=== PATIENT | female | born 1980 | race African-American/Black ===

== ENCOUNTER 2016-07-04 14:36 | Inpatient (IN) | payer OTHER ==
[~2016-07-04] VITALS: Ht 157.5 cm; Wt 65.3 kg
[2016-07-04 15:12] LABS: CALCIUM 8.5 mg/dL (8.5-10.1); CARBON DIOXIDE 25.7 mmol/L (21-32); CREATININE SERUM 1.2 mg/dL (0.6-1.0); POTASSIUM SERUM 3.8 mmol/L (3.5-5.1)
[2016-07-04 15:16] LABS: BILIRUBIN TOTAL 0.2 mg/dL (0.20-1.00); TOTAL PROTEIN, SERUM 6.2 g/dL (6.4-8.2)
[2016-07-04 15:20] LABS: BASOPHIL % 0.3 % (0-2); PLATELET COUNT 242 x10^3mcL (130-400); RED CELL DISTRIBUTION WIDTH 13.5 % (11.5-14.5)
[2016-07-04 15:24] LABS: ALBUMIN 3.2 g/dL (3.4-5.0)
[2016-07-04] MEDS ORDERED: CYMBALTA30 M1 PO (16:21)
[2016-07-04] MEDS ORDERED: LORAZEPAM1 MG PO (16:22)
[2016-07-04] MEDS ORDERED: NEU300 PO (16:23)
[2016-07-04 16:24] LABS: AMPHETAMINE QUAL UR NONE DETECTED (NEG <=1000)
[2016-07-04] MEDS ORDERED: VIS25 PO (16:24)
[2016-07-04] MEDS ORDERED: THERA-M CAPLET1 EACH PO (16:25)
[2016-07-04] MEDS ORDERED: METOCLOPRAMIDE10 M2 PO (16:26)
[2016-07-04] MEDS ORDERED: DELTASONE20 MG PO (16:27)
[2016-07-04] MEDS ORDERED: HUMI SC (16:28)
[2016-07-04 16:51] LABS: PHOSPHOROUS 2.4 mg/dL (2.5-4.9)
[2016-07-04 16:54] LABS: MAGNESIUM 1.7 mg/dL (1.8-2.4)
[2016-07-04 16:56] LABS: CHOLESTEROL/HDL RATIO 1.9
[2016-07-04 17:02] LABS: FREE T4 0.75 ng/dL (0.76-1.46); T4(THYROXINE) 5.3 ug/dL (4.7-13.3)
[2016-07-04 17:05] VITALS: BP 87/52
[2016-07-04 17:08] LABS: T3 TOTAL 0.8 ng/mL
[2016-07-04 18:05] VITALS: BP 87/52
[2016-07-04 21:31] VITALS: BP 86/50
[2016-07-05 05:45] VITALS: BP 89/52
[2016-07-05 06:23] LABS: BASOPHIL % 0.8 % (0-2); PLATELET COUNT 232 x10^3mcL (130-400); RED CELL DISTRIBUTION WIDTH 13.6 % (11.5-14.5)
[2016-07-05 06:50] LABS: CARBON DIOXIDE 26.5 mmol/L (21-32); CHLORIDE SERUM 108 mmol/L (98-107); CREATININE SERUM 0.9 mg/dL (0.6-1.0); GFR1 > 60 mL/min; GLUCOSE SERUM 94 mg/dL (74-106); MAGNESIUM 1.8 mg/dL (1.8-2.4); PHOSPHOROUS 3.2 mg/dL (2.5-4.9); POTASSIUM SERUM 4.3 mmol/L (3.5-5.1); SODIUM SERUM 139 mmol/L (136-145)
[2016-07-05 06:52] LABS: IRON 101 ug/dL (50-170)
[2016-07-05 06:54] LABS: TOTAL IRON BINDING CAPACITY 211 ug/dL (250-450)
[2016-07-05 07:40] LABS: rbc morphology (normal/abnorm) ABNORMAL (NORMAL)
[2016-07-05 07:41] LABS: schistocyte (helmet cell) 1+; target cell (codocyte) 1+
[2016-07-05 09:43] LABS: microscopic required? NO
[2016-07-05 09:55] VITALS: BP 89/56
[2016-07-05 10:01] LABS: UA SPECIFIC GRAVITY 1.015 (1.005-1.035); urine erythrocyte NEGATIVE (NEGATIVE)
[2016-07-05 14:32] VITALS: BP 106/61
[2016-07-05 18:08] VITALS: BP 89/65
[2016-07-05 21:44] VITALS: BP 115/72
[2016-07-06 06:02] VITALS: BP 105/64
[2016-07-06 06:32] LABS: CARBON DIOXIDE 29.5 mmol/L (21-32); CHLORIDE SERUM 107 mmol/L (98-107); CREATININE SERUM 0.9 mg/dL (0.6-1.0); GFR1 > 60 mL/min; GLUCOSE SERUM 89 mg/dL (74-106); MAGNESIUM 1.6 mg/dL (1.8-2.4); PHOSPHOROUS 3.5 mg/dL (2.5-4.9); SODIUM SERUM 141 mmol/L (136-145)
[2016-07-06 06:42] LABS: BASOPHIL % 0.5 % (0-2); PLATELET COUNT 223 x10^3mcL (130-400); RED CELL DISTRIBUTION WIDTH 13.8 % (11.5-14.5)
[2016-07-06 09:33] VITALS: BP 107/71
[2016-07-06 11:47] VITALS: BP 107/71
[2016-07-06] MEDS ORDERED: ASPIR 8181 MG PO (13:09)
[2016-07-06] MEDS ORDERED: LIPI20 PO (13:09)
== END 2016-07-06 15:00 | disposition home or self-care (01) | DRG 204 ==
LOC: ED 14:36 → DU 16:10
PROVIDERS: Emergency Medicine; Family Medicine; ADMIT Family Medicine
DX: R55 Syncope and collapse (principal); N17.0 Acute kidney failure with tubular necrosis; I95.89 Other hypotension; E83.42 Hypomagnesemia; E83.39 Other disorders of phosphorus metabolism; G90.9 Disorder of the autonomic nervous system, unspecified; F17.210 Nicotine dependence, cigarettes, uncomplicated; D50.9 Iron deficiency anemia, unspecified; E05.80 Other thyrotoxicosis without thyrotoxic crisis or storm; F25.0 Schizoaffective disorder, bipolar type; F12.10 Cannabis abuse, uncomplicated; E02 Subclinical iodine-deficiency hypothyroidism
CPT/HCPCS: 80307; 84439; J0696; J3475; J7030; J7040; J8597; Q0092